=== PATIENT | female | born 1945 | race African-American/Black ===

== ENCOUNTER 2018-10-11 18:00 | Inpatient (IN) | payer MEDICARE, OTHER ==
[~2018-10-11] VITALS: Ht 154.9 cm; Wt 44.0 kg
[2018-10-11] MEDS: IPRATROPIUM/ALBUTEROL 0.5-3(2.5)MG/3ML NEB HHN SCH (00:45)
[~2018-10-11 18:00] MED LIST: BENZ1TAB7 MT; DIVA-73 MT; FOLI-43 MT; ISOS1TAB MT; LORA-250 MT; METO25TA6 MT; RISP2TAB22 MT; TRAZ-251 MT
[2018-10-11 20:00] VITALS: BP_SYST 157; BP_DIAS 118; BP_DIAS 60
[2018-10-11] MEDS ORDERED: MAGNESIUM HYDROXIDE 400MG/5ML 30ML UDC PO PRN (20:45)
[2018-10-11] MEDS ORDERED: LORAZEPAM 2MG/ML CPJ IV PRN (20:45)
[2018-10-11] MEDS ORDERED: MAGNESIUM/ALUMINUM HYDROXIDE/SIMETHICONE 30ML UDC PO PRN (20:45)
[2018-10-11] MEDS ORDERED: ONDANSETRON HCL 4MG/2ML INJ IV PRN (20:45)
[2018-10-11] MEDS ORDERED: CLONIDINE 0.1MG TABLET PO PRN (20:45)
[2018-10-11] MEDS ORDERED: NA PHOS,M-B/NA PHOS,DI-BA ENEMA 118ML PR NR (20:45)
[2018-10-11] MEDS ORDERED: SORBITOL 70% SOLN 30ML PO NR (21:30)
[2018-10-11] MEDS ORDERED: ONDANSETRON HCL 4MG TABLET PO PRN (21:45)
[2018-10-11] MEDS ORDERED: NA PHOS,M-B/NA PHOS,DI-BA ENEMA 118ML PR PRN (21:45)
[2018-10-11] MEDS: METOPROLOL TARTRATE 25MG TABLET PO SCH (22:30)
[2018-10-11] MEDS: ENOXAPARIN 60MG/0.6ML SYR SUBCUT SCH (22:30)
[2018-10-11] MEDS: PIPERACILLIN/TAZOBACTAM 2.25 G in DEXTROSE 5% WATER 50 ML IV SCH (23:44)
[2018-10-12] MEDS: PIPERACILLIN/TAZOBACTAM 2.25 G in DEXTROSE 5% WATER 50 ML IV SCH ×2 (05:24→12:20)
[2018-10-12 08:00] VITALS: BP 131/69
[2018-10-12] MEDS: LISINOPRIL 10MG TABLET PO SCH (09:00)
[2018-10-12] MEDS: IPRATROPIUM/ALBUTEROL 0.5-3(2.5)MG/3ML NEB HHN SCH ×4 (09:00→21:41)
[2018-10-12] MEDS: AMLODIPINE 2.5MG TABLET PO SCH (09:00)
[2018-10-12] MEDS: FAMOTIDINE 20MG TABLET PO SCH ×2 (09:32→16:47)
[2018-10-12] MEDS: DIVALPROEX SODIUM 250MG ER TABLET PO SCH (09:33)
[2018-10-12] MEDS: MULTIVITAMINS,THER W-MINERALS TABLET PO SCH (09:33)
[2018-10-12] MEDS: ISOSORB DINIT/HYDRALAZINE HCL 20/37.5MG TABLET PO SCH ×2 (09:34→16:47)
[2018-10-12] MEDS: DOCUSATE SODIUM 100MG CAPSULE PO SCH ×2 (09:34→16:47)
[2018-10-12] MEDS: METOPROLOL TARTRATE 25MG TABLET PO SCH ×2 (09:35→21:03)
[2018-10-12] MEDS: ENOXAPARIN 60MG/0.6ML SYR SUBCUT SCH ×2 (09:35→21:04)
[2018-10-12] MEDS: PIPERACILLIN/TAZ 2.25G PREMIX 50 ML IV SCH (17:41)
[2018-10-12 20:00] VITALS: BP_SYST 119; BP_SYST 56; BP_DIAS 31; BP_DIAS 71
[2018-10-12] MEDS ORDERED: LEVOFLOXACIN 250MG TABLET PO SCH (20:00)
[2018-10-13] MEDS: PIPERACILLIN/TAZ 2.25G PREMIX 50 ML IV SCH ×3 (00:07→13:09)
[2018-10-13 06:34] LABS: BASOPHILS % 0.9 % (0.0-2.0); EOSINOPHILS % 1.2 % (0.0-5.0); HEMATOCRIT. 30.6 % (36.0-48.0); HEMOGLOBIN. 10.2 g/dL (12.0-16.0); LYMPHOCYTES % 27.7 % (20.0-50.0); MEAN CORPUSCULAR HEMOGLOBIN 30.2 pg (28.0-32.0); MEAN CORPUSCULAR VOLUME 90.6 fL (81.0-99.0); MEAN PLATELET VOLUME 7.8 fl (7.4-10.4); MONOCYTES % 12.4 % (2.0-8.0); NEUTROPHILS % 57.8 % (40.0-76.0); PLATELET 397 x1000/uL (130-400); RED BLOOD CELL COUNT 3.38 mill/uL (4.2-5.4); RED CELL DISTRIBUTION WIDTH 14.2 % (11.6-14.6)
[2018-10-13 06:54] LABS: CHLORIDE 107 mEq/L (98-107)
[2018-10-13 08:03] VITALS: BP 148/80
[2018-10-13] MEDS: FAMOTIDINE 20MG TABLET PO SCH (08:48)
[2018-10-13] MEDS: DIVALPROEX SODIUM 250MG ER TABLET PO SCH (08:48)
[2018-10-13] MEDS: LISINOPRIL 10MG TABLET PO SCH (08:50)
[2018-10-13] MEDS: METOPROLOL TARTRATE 25MG TABLET PO SCH ×2 (08:50→21:11)
[2018-10-13] MEDS: ISOSORB DINIT/HYDRALAZINE HCL 20/37.5MG TABLET PO SCH ×2 (08:50→18:03)
[2018-10-13] MEDS: AMLODIPINE 2.5MG TABLET PO SCH (08:50)
[2018-10-13] MEDS: MULTIVITAMINS,THER W-MINERALS TABLET PO SCH (08:50)
[2018-10-13] MEDS: DOCUSATE SODIUM 100MG CAPSULE PO SCH ×2 (08:51→17:00)
[2018-10-13] MEDS: ENOXAPARIN 60MG/0.6ML SYR SUBCUT SCH ×2 (08:52→21:12)
[2018-10-13] MEDS: IPRATROPIUM/ALBUTEROL 0.5-3(2.5)MG/3ML NEB HHN SCH ×4 (09:27→20:24)
[2018-10-13] MEDS: LEVOFLOXACIN 500MG TABLET PO SCH (18:08)
[2018-10-13 20:00] VITALS: BP 127/73
[2018-10-14 06:47] LABS: CHLORIDE 109 mEq/L (98-107)
[2018-10-14 06:50] LABS: BASOPHILS % 0.7 % (0.0-2.0); EOSINOPHILS % 1.3 % (0.0-5.0); HEMATOCRIT. 30.6 % (36.0-48.0); HEMOGLOBIN. 10.3 g/dL (12.0-16.0); LYMPHOCYTES % 26.7 % (20.0-50.0); MEAN CORPUSCULAR HEMOGLOBIN 30.2 pg (28.0-32.0); MEAN CORPUSCULAR VOLUME 90.3 fL (81.0-99.0); MEAN PLATELET VOLUME 7.8 fl (7.4-10.4); MONOCYTES % 11.2 % (2.0-8.0); NEUTROPHILS % 60.1 % (40.0-76.0); PLATELET 437 x1000/uL (130-400); RED BLOOD CELL COUNT 3.39 mill/uL (4.2-5.4); RED CELL DISTRIBUTION WIDTH 14.5 % (11.6-14.6)
[2018-10-14 08:20] VITALS: BP 145/73
[2018-10-14] MEDS: IPRATROPIUM/ALBUTEROL 0.5-3(2.5)MG/3ML NEB HHN SCH ×4 (08:30→20:34)
[2018-10-14] MEDS: MULTIVITAMINS,THER W-MINERALS TABLET PO SCH (08:50)
[2018-10-14] MEDS: LISINOPRIL 10MG TABLET PO SCH (08:50)
[2018-10-14] MEDS: ENOXAPARIN 60MG/0.6ML SYR SUBCUT SCH ×2 (08:50→22:10)
[2018-10-14] MEDS: METOPROLOL TARTRATE 25MG TABLET PO SCH ×2 (08:51→22:05)
[2018-10-14] MEDS: ISOSORB DINIT/HYDRALAZINE HCL 20/37.5MG TABLET PO SCH ×2 (08:51→16:52)
[2018-10-14] MEDS: FAMOTIDINE 20MG TABLET PO SCH (08:51)
[2018-10-14] MEDS: DOCUSATE SODIUM 100MG CAPSULE PO SCH ×2 (08:51→16:50)
[2018-10-14] MEDS: DIVALPROEX SODIUM 250MG ER TABLET PO SCH (08:53)
[2018-10-14] MEDS: AMLODIPINE 2.5MG TABLET PO SCH (08:53)
[2018-10-14] MEDS: ACETAMINOPHEN 650MG/20.3ML UDC PO PRN ×2 (10:25→14:06)
[2018-10-14] MEDS: LEVOFLOXACIN 500MG TABLET PO SCH (14:07)
[2018-10-14 20:00] VITALS: BP 133/76
[2018-10-15 08:00] VITALS: BP_SYST 146; BP_DIAS 88; BP_DIAS 89
[2018-10-15] MEDS: IPRATROPIUM/ALBUTEROL 0.5-3(2.5)MG/3ML NEB HHN SCH ×5 (08:20→19:55)
[2018-10-15] MEDS: LISINOPRIL 10MG TABLET PO SCH (08:58)
[2018-10-15] MEDS: MULTIVITAMINS,THER W-MINERALS TABLET PO SCH (08:58)
[2018-10-15] MEDS: AMLODIPINE 2.5MG TABLET PO SCH (08:58)
[2018-10-15] MEDS: ENOXAPARIN 60MG/0.6ML SYR SUBCUT SCH ×2 (08:58→21:41)
[2018-10-15] MEDS: FAMOTIDINE 20MG TABLET PO SCH (08:59)
[2018-10-15] MEDS: DIVALPROEX SODIUM 250MG ER TABLET PO SCH (08:59)
[2018-10-15] MEDS: ISOSORB DINIT/HYDRALAZINE HCL 20/37.5MG TABLET PO SCH ×2 (08:59→16:17)
[2018-10-15] MEDS: METOPROLOL TARTRATE 25MG TABLET PO SCH ×2 (08:59→21:40)
[2018-10-15] MEDS: DOCUSATE SODIUM 100MG CAPSULE PO SCH ×2 (09:00→16:17)
[2018-10-15] MEDS: LEVOFLOXACIN 500MG TABLET PO SCH (11:43)
[2018-10-15] MEDS ORDERED: BISACODYL 5MG TABLET PO PRN (13:15)
[2018-10-15] MEDS: LACTULOSE 20G/30ML UDC PO SCH ×2 (14:00→16:17)
[2018-10-15 20:00] VITALS: BP 125/66
[2018-10-16] MEDS: IPRATROPIUM/ALBUTEROL 0.5-3(2.5)MG/3ML NEB HHN SCH ×4 (07:42→21:32)
[2018-10-16 08:15] VITALS: BP 129/72
[2018-10-16] MEDS: LISINOPRIL 10MG TABLET PO SCH (09:05)
[2018-10-16] MEDS: MULTIVITAMINS,THER W-MINERALS TABLET PO SCH (09:05)
[2018-10-16] MEDS: FAMOTIDINE 20MG TABLET PO SCH (09:05)
[2018-10-16] MEDS: AMLODIPINE 2.5MG TABLET PO SCH (09:05)
[2018-10-16] MEDS: DIVALPROEX SODIUM 250MG ER TABLET PO SCH (09:05)
[2018-10-16] MEDS: DOCUSATE SODIUM 100MG CAPSULE PO SCH ×2 (09:05→16:07)
[2018-10-16] MEDS: ISOSORB DINIT/HYDRALAZINE HCL 20/37.5MG TABLET PO SCH ×2 (09:05→16:07)
[2018-10-16] MEDS: METOPROLOL TARTRATE 25MG TABLET PO SCH ×2 (09:06→20:47)
[2018-10-16] MEDS: ENOXAPARIN 60MG/0.6ML SYR SUBCUT SCH ×2 (09:06→20:47)
[2018-10-16] MEDS: LEVOFLOXACIN 500MG TABLET PO SCH (11:00)
[2018-10-16] MEDS ORDERED: LORAZEPAM 0.5MG TABLET PO PRN (18:45)
[2018-10-16 20:00] VITALS: BP 118/66
[2018-10-17 06:58] LABS: CHLORIDE 106 mEq/L (98-107)
[2018-10-17 07:07] LABS: BASOPHILS % 0.6 % (0.0-2.0); EOSINOPHILS % 1.2 % (0.0-5.0); HEMOGLOBIN. 10.5 g/dL (12.0-16.0); LYMPHOCYTES % 29.1 % (20.0-50.0); MEAN CORPUSCULAR HEMOGLOBIN 30.7 pg (28.0-32.0); MEAN CORPUSCULAR VOLUME 90.9 fL (81.0-99.0); MEAN PLATELET VOLUME 7.5 fl (7.4-10.4); MONOCYTES % 13.5 % (2.0-8.0); NEUTROPHILS % 55.6 % (40.0-76.0); PLATELET 509 x1000/uL (130-400); RED BLOOD CELL COUNT 3.41 mill/uL (4.2-5.4); RED CELL DISTRIBUTION WIDTH 14.7 % (11.6-14.6)
[2018-10-17 08:00] VITALS: BP 158/87
[2018-10-17] MEDS: LISINOPRIL 10MG TABLET PO SCH (09:00)
[2018-10-17] MEDS: IPRATROPIUM/ALBUTEROL 0.5-3(2.5)MG/3ML NEB HHN SCH ×3 (09:01→20:03)
[2018-10-17] MEDS: FAMOTIDINE 20MG TABLET PO SCH (09:27)
[2018-10-17] MEDS: AMLODIPINE 2.5MG TABLET PO SCH (09:27)
[2018-10-17] MEDS: MULTIVITAMINS,THER W-MINERALS TABLET PO SCH (09:27)
[2018-10-17] MEDS: DOCUSATE SODIUM 100MG CAPSULE PO SCH ×2 (09:27→17:28)
[2018-10-17] MEDS: DIVALPROEX SODIUM 250MG ER TABLET PO SCH (09:27)
[2018-10-17] MEDS: METOPROLOL TARTRATE 25MG TABLET PO SCH ×2 (09:28→21:15)
[2018-10-17] MEDS: ISOSORB DINIT/HYDRALAZINE HCL 20/37.5MG TABLET PO SCH ×2 (09:28→17:28)
[2018-10-17] MEDS: ENOXAPARIN 60MG/0.6ML SYR SUBCUT SCH ×2 (09:29→21:15)
[2018-10-17 20:00] VITALS: BP 110/63
[2018-10-18 08:00] VITALS: BP 131/74
[2018-10-18] MEDS: METOPROLOL TARTRATE 25MG TABLET PO SCH (09:00)
[2018-10-18] MEDS: LISINOPRIL 10MG TABLET PO SCH (09:00)
[2018-10-18] MEDS: FAMOTIDINE 20MG TABLET PO SCH (09:11)
[2018-10-18] MEDS: MULTIVITAMINS,THER W-MINERALS TABLET PO SCH (09:11)
[2018-10-18] MEDS: DOCUSATE SODIUM 100MG CAPSULE PO SCH ×2 (09:11→17:29)
[2018-10-18] MEDS: ISOSORB DINIT/HYDRALAZINE HCL 20/37.5MG TABLET PO SCH ×2 (09:12→17:29)
[2018-10-18] MEDS: DIVALPROEX SODIUM 250MG ER TABLET PO SCH (09:12)
[2018-10-18] MEDS: AMLODIPINE 2.5MG TABLET PO SCH (09:12)
[2018-10-18] MEDS: ENOXAPARIN 60MG/0.6ML SYR SUBCUT SCH (09:13)
[2018-10-18] MEDS: IPRATROPIUM/ALBUTEROL 0.5-3(2.5)MG/3ML NEB HHN SCH ×3 (09:22→16:47)
[2018-10-18] MEDS ORDERED: DOCU-138 MT (16:14)
[2018-10-18] MEDS ORDERED: LISI-651 MT (16:16)
[2018-10-18] MEDS ORDERED: MULT-1116 MT (16:20)
[2018-10-18 16:25] VITALS: BP 131/74
== END 2018-10-18 19:40 | disposition home health service (06) | DRG 91 ==
PROVIDERS: ADMIT Psychiatry & Neurology Neurology; ATTEND Internal Medicine Geriatric Medicine
DX: G92 Toxic encephalopathy (principal); A41.9 Sepsis, unspecified organism; J18.1 Lobar pneumonia, unspecified organism; E44.0 Moderate protein-calorie malnutrition; E87.1 Hypo-osmolality and hyponatremia; N17.9 Acute kidney failure, unspecified; I82.403 Acute embolism and thrombosis of unspecified deep veins of lower extremity, bilateral; Z68.1 Body mass index [BMI] 19.9 or less, adult; D50.9 Iron deficiency anemia, unspecified; F03.90 Unspecified dementia, unspecified severity, without behavioral disturbance, psychotic disturbance, mood disturbance, and anxiety; F39 Unspecified mood [affective] disorder; I10 Essential (primary) hypertension; K56.41 Fecal impaction; L89.322 Pressure ulcer of left buttock, stage 2; F41.9 Anxiety disorder, unspecified; E11.65 Type 2 diabetes mellitus with hyperglycemia; D63.8 Anemia in other chronic diseases classified elsewhere; Z79.891 Long term (current) use of opiate analgesic; Z79.899 Other long term (current) drug therapy; Z87.01 Personal history of pneumonia (recurrent); Z87.891 Personal history of nicotine dependence
CPT/HCPCS: 36415; 80048; 92523; 94640; 97116; 97162; 97166; 97530; 97535; C1893; J1650; J2060; J2543; J7040; J7060; J7620

== ENCOUNTER 2019-12-22 13:29 | Emergency (ER) | payer MEDICARE, MEDICAID ==
[~2019-12-22] VITALS: Ht 165.1 cm; Wt 52.0 kg
[~2019-12-22 13:29] MED LIST changes: -BENZ1TAB7 MT; +DOCU-138 MT; -FOLI-43 MT; +LISI-651 MT; -LORA-250 MT; +MULT-1116 MT; -RISP2TAB22 MT; -TRAZ-251 MT
[2019-12-22] MEDS ORDERED: ACETAMINOPHEN 325MG TABLET PO STA (14:08)
[2019-12-22 14:49] LABS: BASOPHILS % 0.7 % (0.0-2.0); EOSINOPHILS % 0.3 % (0.0-5.0); HEMATOCRIT. 39.3 % (36.0-48.0); HEMOGLOBIN. 13.2 g/dL (12.0-16.0); LYMPHOCYTES % 20.5 % (20.0-50.0); MEAN CORPUSCULAR HEMOGLOBIN 31.3 pg (28.0-32.0); MEAN CORPUSCULAR VOLUME 93.2 fL (81.0-99.0); MEAN PLATELET VOLUME 7.9 fl (7.4-10.4); MONOCYTES % 14.3 % (2.0-8.0); NEUTROPHILS % 64.2 % (40.0-76.0); PLATELET 225 x1000/uL (130-400); RED BLOOD CELL COUNT 4.22 mill/uL (4.2-5.4); RED CELL DISTRIBUTION WIDTH 13.6 % (11.6-14.6)
[2019-12-22 14:58] LABS: CHLORIDE 104 mEq/L (98-107)
[2019-12-22 16:45] VITALS: BP 142/79
[2019-12-22] MEDS ORDERED: KETOROLAC 60MG/2ML VIAL IM ONE (16:45)
== END 2019-12-22 17:57 | disposition home or self-care (01) ==
LOC: ER 13:29
DX: R10.9 Unspecified abdominal pain (principal); M79.18 Myalgia, other site; I10 Essential (primary) hypertension; Z79.899 Other long term (current) drug therapy
CPT/HCPCS: 36415; 71045; 80053; 82962; 85025; 93005; 99285

== ENCOUNTER 2023-12-31 13:59 | Inpatient (IN) | payer MEDICARE, MEDICAID ==
[~2023-12-31] VITALS: Ht 162.6 cm; Wt 44.3 kg
[~2023-12-31 13:59] MED LIST changes: -ISOS1TAB MT; +ISOS1TAB2 MT
[2023-12-31 14:39] VITALS: PULSE 69; RESP 16; O2SAT 97
[2023-12-31] MEDS: IPRATROPIUM BROMIDE (0.02%) 0.5MG/2.5ML NEB HHN STA (14:39)
[2023-12-31] MEDS: ALBUTEROL (0.083%) 2.5MG/3ML NEB HHN STA (14:39)
[2023-12-31 15:00] LABS: HEMATOCRIT. 41.8 % (36.0-48.0); HEMOGLOBIN. 13.3 g/dL (12.0-16.0); MEAN CORPUSCULAR HEMOGLOBIN 29.7 pg (28.0-32.0); MEAN CORPUSCULAR HGB CONC 31.7 g/dL (31.0-37.0); MEAN CORPUSCULAR VOLUME 93.7 fL (81.0-99.0); MEAN PLATELET VOLUME 8.2 fl (7.4-10.4); PLATELET 243 x1000/uL (130-400); RED BLOOD CELL COUNT 4.46 mill/uL (4.2-5.4); WHITE BLOOD COUNT 5.9 x1000/uL (4.5-11.0)
[2023-12-31 15:02] LABS: DIFFERENTIAL COMMENT 1
[2023-12-31 15:04] LABS: CHLORIDE 111 mEq/L (98-107); SODIUM 145 mEq/L (136-145)
[2023-12-31 15:05] LABS: CARBON DIOXIDE 29 mEq/L (21-32)
[2023-12-31 15:06] LABS: CALCIUM 8.9 mg/dL (8.7-10.4)
[2023-12-31 15:10] LABS: CREATININE 1.2 mg/dL (0.6-1.0); GLUCOSE 110 mg/dL (70-105); UREA NITROGEN BLOOD 19 mg/dL (9-23)
[2023-12-31] MEDS: METHYLPREDNISOLONE SOD SUCC 125MG/2ML (ACT-O-VIAL) IV STA (15:10)
[2023-12-31] MEDS: SODIUM CHLORIDE 0.9% 1000ML BAG (SEPSIS BOLUS) IV ONE (15:10)
[2023-12-31 15:12] LABS: ALANINE AMINOTRANSFERASE 19 IU/L (10-49); ALBUMIN 4.3 g/dL (3.2-4.8); ASPARTATE AMINOTRANSFERASE 35 IU/L (<34)
[2023-12-31 15:13] LABS: BILIRUBIN TOTAL 0.5 mg/dL (0.1-1.0); PROTEIN TOTAL 7.1 g/dL (6.0-8.3)
[2023-12-31 15:25] LABS: TROPONIN I HIGH SENSITIVITY 101 ng/L (3.0-34)
[2023-12-31 15:26] LABS: INR 0.9; PARTIAL THROMBOPLASTIN TIME 23.6 sec (23.4-31.0); PROTHROMBIN TIME 10.3 sec (9.6-11.0)
[2023-12-31 15:38] LABS: PLATELET ESTIMATE NORMAL
[2023-12-31 15:39] LABS: ANISOCYTOSIS 1+
[2023-12-31] MEDS: CEFTRIAXONE 1GM/50ML 50 ML IV ONE (16:52)
[2023-12-31] MEDS: AZITHROMYCIN 500MG/250ML 250 ML IV ONE (16:52)
[2023-12-31] MEDS ORDERED: ASPIRIN 81MG TABLET PO ONE (17:00)
[2023-12-31] MEDS ORDERED: MAGNESIUM/ALUMINUM HYDROXIDE/SIMETHICONE 30ML UDC PO PRN (18:15)
[2023-12-31] MEDS ORDERED: ONDANSETRON HCL 4MG/2ML INJ IV PRN (18:15)
[2023-12-31] MEDS ORDERED: LOSARTAN 50 MG TABLET PO SCH (18:45)
[2023-12-31] MEDS ORDERED: DEXT 5%/0.45% NACL 1000ML 1,000 ML IV SCH (19:00)
[2023-12-31 20:41] LABS: LACTATE DEHYDROGENASE 273 IU/L (120-246); PHOSPHORUS 3.6 mg/dL (2.5-4.9)
[2023-12-31 20:42] LABS: AMMONIA < 17 uMol/L (<32)
[2023-12-31] MEDS: ENOXAPARIN 40MG/0.4ML SYR SUBCUT NR (21:00)
[2023-12-31] MEDS ORDERED: ENOXAPARIN 30MG/0.3ML SYR SUBCUT SCH (21:00)
[2023-12-31] MEDS ORDERED: DOCUSATE SODIUM 100MG CAPSULE PO SCH (21:00)
[2023-12-31] MEDS: ALBUTEROL 6.7GM HFA INHALER ORI SCH (22:41)
[2023-12-31] MEDS: FUROSEMIDE 20MG/2ML VIAL IVP NR (22:50)
[2023-12-31] MEDS: METHYLPREDNISOLONE SOD SUCC 40MG/ML (ACT-O-VIAL) IV SCH (22:51)
[2023-12-31] MEDS: PANTOPRAZOLE SODIUM 40 MG/VIAL IV SCH (22:51)
[2023-12-31] MEDS: ASPIRIN 81MG TABLET PO NR (22:55)
[2023-12-31] MEDS: ACETAMINOPHEN 325MG TABLET PO PRN (23:00)
[2023-12-31] MEDS: DIVALPROEX SODIUM 250MG DR TABLET PO SCH (23:00)
[2023-12-31] MEDS: ISOSORB DINIT/HYDRALAZINE HCL 20/37.5MG TABLET PO SCH (23:08)
[2023-12-31] MEDS: METOPROLOL TARTRATE 25MG TABLET PO SCH (23:10)
[2023-12-31] MEDS: MONTELUKAST SODIUM 10MG TABLET PO NR (23:10)
[2023-12-31] MEDS: ATORVASTATIN CALCIUM 10MG TABLET PO SCH (23:10)
[2024-01-01] VITALS (7 sets, daily range): BP systolic 124–181; BP diastolic 64–99; PULSE 59–72; RESP 18; TEMP 36.3918–36.9474; O2SAT 95–100
[2024-01-01 00:03] LABS: CREATINE KINASE MB FRACTION 0.7 ng/mL (0.5-3.6)
[2024-01-01] MEDS: VANCOMYCIN 1.25GM PMX (XELLIA) 250 ML IV NR (00:38)
[2024-01-01] MEDS: HYDRALAZINE 20MG/ML VIAL IV PRN (05:54)
[2024-01-01 07:13] LABS: BASOPHILS % 0.3 % (0.0-2.0); HEMATOCRIT. 41.3 % (36.0-48.0); HEMOGLOBIN. 13.4 g/dL (12.0-16.0); LYMPHOCYTES % 30.7 % (20.0-50.0); MEAN CORPUSCULAR HEMOGLOBIN 30.2 pg (28.0-32.0); MEAN CORPUSCULAR HGB CONC 32.6 g/dL (31.0-37.0); MEAN CORPUSCULAR VOLUME 92.7 fL (81.0-99.0); MEAN PLATELET VOLUME 8.5 fl (7.4-10.4); MONOCYTES % 5.9 % (2.0-8.0); NEUTROPHILS % 63.1 % (40.0-76.0); PLATELET 232 x1000/uL (130-400); RED BLOOD CELL COUNT 4.45 mill/uL (4.2-5.4); RED CELL DISTRIBUTION WIDTH 14.4 % (11.6-14.6)
[2024-01-01 07:30] LABS: CREATINE KINASE MB FRACTION 0.8 ng/mL (0.5-3.6)
[2024-01-01] MEDS: ASPIRIN 81MG EC TABLET PO SCH (08:48)
[2024-01-01] MEDS: DOCUSATE SODIUM 250MG CAPSULE PO SCH (08:49)
[2024-01-01] MEDS: FUROSEMIDE 20MG/2ML VIAL IVP SCH (08:51)
[2024-01-01] MEDS: CEFTRIAXONE 2GM/50ML 50 ML IV SCH (11:48)
[2024-01-01 12:56] LABS: CLARITY URINE CLEAR (CLEAR); COLOR URINE YELLOW (YELLOW); GLUCOSE URINE NEGATIVE (NEGATIVE); KETONES URINE NEGATIVE (NEGATIVE); LEUKOCYTE ESTERASE URINE NEGATIVE (NEGATIVE); NITRITE URINE NEGATIVE (NEGATIVE); OCCULT BLOOD URINE NEGATIVE (NEGATIVE); PROTEIN URINE NEGATIVE (NEGATIVE); SPECIFIC GRAVITY URINE 1.013 (1.005-1.030); UROBILINOGEN URINE 0.2 E.U./dL (0.2-1.0)
[2024-01-01 13:10] LABS: *AMPHETAMINES SCREEN URINE NEGATIVE (NEGATIVE); *BARBITURATES SCREEN URINE NEGATIVE (NEGATIVE); *BENZODIAZEPINES SCREEN URINE NEGATIVE (NEGATIVE); *COCAINE SCREEN URINE NEGATIVE (NEGATIVE); CANNABINOID URINE SCREEN NEGATIVE (NEGATIVE); ECSTASY MDMA SCREEN URINE NEGATIVE (NEGATIVE); METHADONE URINE SCREEN NEGATIVE (NEGATIVE); OPIATES URINE SCREEN NEGATIVE (NEGATIVE); PHENCYCLIDINE URINE SCREEN NEGATIVE (NEGATIVE)
[2024-01-01] MEDS: AZITHROMYCIN 500MG/250ML 250 ML IV SCH (14:27)
[2024-01-01] MEDS: NIRMATRELVIR PO SCH (14:29)
[2024-01-01] MEDS: RITONAVIR PO SCH (14:29)
[2024-01-01] MEDS: MONTELUKAST SODIUM 10MG TABLET PO SCH (16:43)
[2024-01-01] MEDS ORDERED: CEFTRIAXONE 2GM/50ML 50 ML IV SCH (17:00)
[2024-01-01] MEDS ORDERED: AZITHROMYCIN 500MG/250ML 250 ML IV SCH (17:00)
[2024-01-01] MEDS ORDERED: ALBUTEROL 6.7GM HFA INHALER ORI ONE (17:30)
[2024-01-01] MEDS: ENOXAPARIN 40MG/0.4ML SYR SUBCUT SCH (21:14)
[2024-01-02] VITALS: BP 176/102; PULSE 68; RESP 18; TEMP 36.6696; O2SAT 97
[2024-01-02 04:00] VITALS: BP 168/96; PULSE 59; RESP 18; TEMP 36.44736; O2SAT 98
[2024-01-02] MEDS: VANCOMYCIN 750MG/150ML (BAXTER) IV SCH (06:17)
[2024-01-02 08:00] VITALS: BP 174/98; PULSE 64; RESP 18; TEMP 36.61404; O2SAT 95
[2024-01-02 12:00] VITALS: BP 148/100; PULSE 66; RESP 18; TEMP 36.3918; O2SAT 95
[2024-01-02] MEDS ORDERED: HYDRALAZINE HCL 50MG TABLET PO ONE (14:30)
[2024-01-02] MEDS ORDERED: SENNOSIDES/DOCUSATE SOD 8.6/50MG TABLET PO PRN (14:30)
[2024-01-02 16:00] VITALS: BP 194/47; PULSE 53; RESP 18; TEMP 36.50292; O2SAT 95
[2024-01-02] MEDS: AMLODIPINE 2.5MG TABLET PO NR (16:50)
[2024-01-02] MEDS: METOPROLOL TARTRATE 50MG TABLET PO NR (16:50)
[2024-01-02 20:00] VITALS: BP 188/86; PULSE 55; RESP 19; TEMP 36.9474; O2SAT 96
[2024-01-02] MEDS: ENOXAPARIN 30MG/0.3ML SYR SUBCUT SCH (21:10)
[2024-01-02] MEDS: METOPROLOL TARTRATE 50MG TABLET PO SCH (21:14)
[2024-01-02] MEDS ORDERED: HYDRALAZINE HCL 50MG TABLET PO SCH (22:00)
[2024-01-03] VITALS: BP 181/119; PULSE 60; RESP 19; TEMP 36.72516; O2SAT 97
[2024-01-03 04:00] VITALS: BP 186/87; PULSE 56; RESP 19; TEMP 36.61404; O2SAT 98
[2024-01-03 08:00] VITALS: BP 179/80; PULSE 65; RESP 15; TEMP 36.3918; O2SAT 97
[2024-01-03 08:22] LABS: CHLORIDE 104 mEq/L (98-107); POTASSIUM 3.5 mEq/L (3.5-5.1); SODIUM 141 mEq/L (136-145)
[2024-01-03 08:23] LABS: CALCIUM 8.8 mg/dL (8.7-10.4); CARBON DIOXIDE 28 mEq/L (21-32)
[2024-01-03 08:28] LABS: CREATINE KINASE 90 IU/L (34-145)
[2024-01-03 08:29] LABS: CREATININE 0.9 mg/dL (0.6-1.0); GLUCOSE 115 mg/dL (70-105); UREA NITROGEN BLOOD 21 mg/dL (9-23)
[2024-01-03 09:01] LABS: BASOPHILS % 0.1 % (0.0-2.0); HEMATOCRIT. 41.8 % (36.0-48.0); HEMOGLOBIN. 14.1 g/dL (12.0-16.0); LYMPHOCYTES % 9.4 % (20.0-50.0); MEAN CORPUSCULAR HEMOGLOBIN 31.1 pg (28.0-32.0); MEAN CORPUSCULAR HGB CONC 33.6 g/dL (31.0-37.0); MEAN CORPUSCULAR VOLUME 92.4 fL (81.0-99.0); MEAN PLATELET VOLUME 8.9 fl (7.4-10.4); MONOCYTES % 5.1 % (2.0-8.0); NEUTROPHILS % 85.4 % (40.0-76.0); PLATELET 316 x1000/uL (130-400); RED BLOOD CELL COUNT 4.53 mill/uL (4.2-5.4); RED CELL DISTRIBUTION WIDTH 14.3 % (11.6-14.6); WHITE BLOOD COUNT 13.3 x1000/uL (4.5-11.0)
[2024-01-03] MEDS: AMLODIPINE 2.5MG TABLET PO SCH ×2 (09:13→13:42)
[2024-01-03] MEDS: FAMOTIDINE 20MG/2ML VIAL IV SCH (09:18)
[2024-01-03 12:00] VITALS: BP 118/76; PULSE 67; RESP 15; TEMP 36.3918; O2SAT 100
[2024-01-03] MEDS ORDERED: VANCOMYCIN 1GM/200ML PMX (BAXTER) IV SCH (12:00)
[2024-01-03 16:00] VITALS: BP 139/64; PULSE 65; RESP 17; TEMP 36.50292; O2SAT 100
[2024-01-03] MEDS: VANCOMYCIN 750MG/150ML (BAXTER) IV SCH (17:35)
[2024-01-03 20:00] VITALS: BP 136/74; PULSE 61; RESP 19; TEMP 36.50292; O2SAT 96
[2024-01-03] MEDS: TRAZODONE HCL 50MG TABLET PO SCH (22:03)
[2024-01-04] VITALS: BP 144/72; PULSE 68; RESP 19; TEMP 36.61404; O2SAT 99
[2024-01-04 04:00] VITALS: BP 133/71; PULSE 57; RESP 18; TEMP 36.3918; O2SAT 97
[2024-01-04] MEDS: ALBUTEROL 6.7GM HFA INHALER ORI PRN (06:21)
[2024-01-04 08:00] VITALS: BP 132/67; PULSE 52; RESP 19; TEMP 36.50292; O2SAT 98
[2024-01-04 10:57] LABS: BASOPHILS % 0.1 % (0.0-2.0); HEMATOCRIT. 41.8 % (36.0-48.0); HEMOGLOBIN. 13.5 g/dL (12.0-16.0); MEAN CORPUSCULAR HEMOGLOBIN 29.9 pg (28.0-32.0); MEAN CORPUSCULAR HGB CONC 32.2 g/dL (31.0-37.0); MEAN CORPUSCULAR VOLUME 92.7 fL (81.0-99.0); MEAN PLATELET VOLUME 8.3 fl (7.4-10.4); MONOCYTES % 7.1 % (2.0-8.0); NEUTROPHILS % 84.8 % (40.0-76.0); PLATELET 365 x1000/uL (130-400); RED BLOOD CELL COUNT 4.51 mill/uL (4.2-5.4); RED CELL DISTRIBUTION WIDTH 14.4 % (11.6-14.6); WHITE BLOOD COUNT 15.7 x1000/uL (4.5-11.0)
[2024-01-04 12:00] VITALS: BP 136/68; PULSE 55; RESP 19; TEMP 36.3918; O2SAT 95
[2024-01-04 16:00] VITALS: BP 144/66; PULSE 60; RESP 19; TEMP 36.16956; O2SAT 96
[2024-01-04 20:00] VITALS: BP 133/75; PULSE 65; RESP 18; TEMP 36.3918; O2SAT 97
[2024-01-05 00:47] VITALS: PULSE 72; RESP 16; O2SAT 97
[2024-01-05 08:00] VITALS: BP 136/79; PULSE 64; RESP 17; TEMP 36.05844; O2SAT 94
[2024-01-05 12:00] VITALS: BP 113/64; PULSE 57; RESP 18; TEMP 36.28068; O2SAT 92
[2024-01-05] MEDS ORDERED: TRAZ-251 PO (13:00)
[2024-01-05] MEDS ORDERED: METO-539 PO (13:00)
[2024-01-05] MEDS ORDERED: ALBU6.7H15 ORI (13:00)
[2024-01-05] MEDS ORDERED: ATOR10TA PO (13:00)
[2024-01-05] MEDS ORDERED: MONT-46 PO (13:00)
[2024-01-05] MEDS ORDERED: TOPUD PO (13:00)
[2024-01-05] MEDS ORDERED: DOCU250C14 PO (13:00)
[2024-01-05] MEDS ORDERED: ASPI-1406 PO (13:00)
[2024-01-05] MEDS ORDERED: AZIT250T PO (13:10)
[2024-01-05 16:00] VITALS: BP 114/76; PULSE 71; RESP 16; TEMP 36.50292; O2SAT 93
[2024-01-05 16:53] VITALS: BP 113/64; PULSE 57; TEMP 97.3; O2SAT 95
== END 2024-01-05 22:01 | disposition home health service (06) | DRG 871 ==
LOC: ER 14:21 → 5WST 16:56 → EDBEDREQ 16:59 → EDBEDREQTM 16:59 → 7EST 01-01 01:30 → UNDODISIN 01-03 17:00
PROVIDERS: ADMIT Internal Medicine Geriatric Medicine; ATTEND Internal Medicine Geriatric Medicine
DX: A41.9 Sepsis, unspecified organism (principal); G92.9 Unspecified toxic encephalopathy; J12.82 Pneumonia due to coronavirus disease 2019; J96.01 Acute respiratory failure with hypoxia; U07.1 COVID-19; I16.9 Hypertensive crisis, unspecified; I24.89 Other forms of acute ischemic heart disease; N17.9 Acute kidney failure, unspecified; J81.1 Chronic pulmonary edema; D72.823 Leukemoid reaction; T38.0X5A Adverse effect of glucocorticoids and synthetic analogues, initial encounter; I11.9 Hypertensive heart disease without heart failure; F03.90 Unspecified dementia, unspecified severity, without behavioral disturbance, psychotic disturbance, mood disturbance, and anxiety; Z78.9 Other specified health status; Z79.899 Other long term (current) drug therapy; Z87.891 Personal history of nicotine dependence; Y92.89 Other specified places as the place of occurrence of the external cause
CPT/HCPCS: 36415; 71045; 80048; 80053; 80202; 80305; 81003; 82140; 82550; 82553; 82962; 83036; 83605; 83615; 83735; 83880; 84100; 84145; 84484; 85025; 85379; 87426; 93005; 93970; 94640; 97162; 99285; C1893; J0360; J0456; J0696; J1650; J1940; J2470; J2919; J2920; J3370; J3490; J7030